=== PATIENT | male | born 1955 | race Asian ===

== ENCOUNTER 2021-04-22 07:24 | Day surgery (SDC) | payer OTHER ==
[2021-04-21 16:32] LABS: BASOPHILS # (AUTO) 0.1 X10'3 (0-0.2); BASOPHILS % (AUTO) 0.9 % (0-1); EOSINOPHILS # (AUTO) 0.1 X10'3 (0-0.9); EOSINOPHILS % (AUTO) 1.5 % (0-6); HEMATOCRIT 48.4 % (42.0-52.0); HEMOGLOBIN 16.4 g/dl (14.0-17.9); LYMPHOCYTES # (AUTO) 3.6 X10'3 (1.1-4.8); LYMPHOCYTES % (AUTO) 40.3 % (21-51); MEAN CORPUSCULAR HGB CONC 33.9 g/dL (33.0-36.5); MEAN CORPUSCULAR VOLUME 91.5 FL (78-98); MEAN PLATELET VOLUME 7.6 FL (7.4-10.4); MONOCYTES # (AUTO) 0.6 X10'3 (0-0.9); MONOCYTES % (AUTO) 6.9 % (2-12); NEUTROPHILS # (AUTO) 4.5 X10'3 (1.8-7.7); NEUTROPHILS % (AUTO) 50.4 % (42-75); PLATELET COUNT 293 X10'3 (140-440); RED BLOOD COUNT 5.29 X10'6 (4.70-6.10); RED CELL DISTRIBUTION WIDTH 13.3 % (11.5-14.5); WHITE BLOOD COUNT 8.9 X10'3 (4.5-11.0)
[2021-04-21 16:45] LABS: ALANINE AMINOTRANSFERASE 38 U/L (12-78); ALBUMIN 3.7 G/DL (3.4-5.0); ALBUMIN/GLOBULIN RATIO 0.9 (1.1-1.5); ALKALINE PHOSPHATASE 71 IU/L (46-116); ANION GAP 9 (8-16); ASPARTATE AMINO TRANSFERASE 21 U/L (10-37); BILIRUBIN,TOTAL 0.6 MG/DL (0.1-1.0); BLOOD UREA NITROGEN 18 MG/DL (7-18); BUN/CREATININE RATIO 18.2 (5.4-32.0); CALCIUM 8.7 MG/DL (8.5-10.1); CHLORIDE 107 MMOL/L (99-107); CREATININE 0.99 MG/DL (0.60-1.10); GLUCOSE 83 MG/DL (70-104); SODIUM 142 MMOL/L (135-145); TOTAL CARBON DIOXIDE 26.4 MMOL/L (24-32); TOTAL PROTEIN 7.6 G/DL (6.4-8.2); eGFR 76 ML/MIN
[2021-04-22] VITALS (15 sets, daily range): BP systolic 118–129; BP diastolic 81–97
[~2021-04-22] VITALS: Ht 160 cm; Wt 80.7 kg
[2021-04-22] MEDS ORDERED: normal saline 1000ml 1,000 ML IV SCH (07:50)
[2021-04-22] MEDS ORDERED: LORazepam 0.5 MG tablet PO ONE (07:50)
[2021-04-22] MEDS ORDERED: diphenhydrAMINE 25mg capsule PO ONE (07:50)
[2021-04-22] MEDS ORDERED: atropine 0.1mg/ml 10ml syringe IV ONE (07:50)
[2021-04-22] MEDS ORDERED: morphine 10mg/ml inj. IV ONE (07:50)
[2021-04-22] MEDS ORDERED: MIDAZolam 1mg/ml 10ml vial IV ONE (07:50)
[2021-04-22] MEDS ORDERED: amiodarone 150mg/dext, iso-os 100 ML IV ONE (07:50)
[2021-04-22] MEDS ORDERED: CHOL500049 PO (07:52)
[2021-04-22] MEDS ORDERED: FLEC100T2 PO (07:52)
[2021-04-22] MEDS ORDERED: ATOR40TA PO (07:52)
[2021-04-22] MEDS ORDERED: CARV-49 PO (07:52)
[2021-04-22] MEDS ORDERED: APIX5TAB3 PO (07:52)
== END 2021-04-22 12:35 | disposition home or self-care (01) ==
LOC: SSTAY O 07:24
PROVIDERS: ATTEND Internal Medicine Cardiovascular Disease
DX: I48.0 Paroxysmal atrial fibrillation (principal); E78.5 Hyperlipidemia, unspecified; G47.33 Obstructive sleep apnea (adult) (pediatric); F17.210 Nicotine dependence, cigarettes, uncomplicated; Z79.899 Other long term (current) drug therapy; Z79.01 Long term (current) use of anticoagulants
CPT/HCPCS: 36415; 80053; 85025; 92960; 93005; 94760; 94799; J2250; J2270

== ENCOUNTER 2023-01-18 08:00 | Day surgery (SDC) | payer BC, OTHER ==
[2023-01-17 10:42] LABS: BASOPHILS # (AUTO) 0.1 X10'3 (0-0.2); BASOPHILS % (AUTO) 0.7 % (0-1); EOSINOPHILS # (AUTO) 0.2 X10'3 (0-0.9); EOSINOPHILS % (AUTO) 1.8 % (0-6); HEMATOCRIT 48.2 % (42.0-52.0); HEMOGLOBIN 16.4 g/dl (14.0-17.9); LYMPHOCYTES # (AUTO) 3.3 X10'3 (1.1-4.8); LYMPHOCYTES % (AUTO) 35.4 % (21-51); MEAN CORPUSCULAR HEMOGLOBIN 31.7 PG (27.0-31.0); MEAN CORPUSCULAR VOLUME 93.2 FL (78-98); MEAN PLATELET VOLUME 7.7 FL (7.4-10.4); MONOCYTES # (AUTO) 0.7 X10'3 (0-0.9); MONOCYTES % (AUTO) 7.8 % (2-12); NEUTROPHILS # (AUTO) 5.1 X10'3 (1.8-7.7); NEUTROPHILS % (AUTO) 54.3 % (42-75); PLATELET COUNT 231 X10'3 (140-440); RED BLOOD COUNT 5.17 X10'6 (4.70-6.10); WHITE BLOOD COUNT 9.5 X10'3 (4.5-11.0)
[2023-01-17 10:47] LABS: ALBUMIN 3.7 G/DL (3.4-5.0); ANION GAP 8 (8-16); BLOOD UREA NITROGEN 22 MG/DL (7-18); BUN/CREATININE RATIO 22.4 (10.0-20.0); CALCIUM 8.9 MG/DL (8.5-10.1); CHLORIDE 104 MMOL/L (99-107); CREATININE 0.98 MG/DL (0.60-1.10); GLUCOSE 95 MG/DL (70-104); SODIUM 140 MMOL/L (135-145); TOTAL CARBON DIOXIDE 28.2 MMOL/L (24-32); eGFR 76 ML/MIN
[~2023-01-18] VITALS: Ht 160 cm; Wt 88.9 kg
[~2023-01-18 08:00] MED LIST: APIX5TAB3 PO; ATOR40TA PO; CARV-49 PO; CHOL500049 PO; FLEC100T2 PO
[2023-01-18] MEDS ORDERED: normal saline 1000ml 1,000 ML IV SCH (08:15)
[2023-01-18] MEDS ORDERED: MIDAZolam 1mg/ml 10ml vial IV ONE (08:15)
[2023-01-18] MEDS ORDERED: morphine 10mg/ml inj. IV ONE (08:15)
[2023-01-18] MEDS ORDERED: LORazepam 0.5 MG tablet PO ONE (08:15)
[2023-01-18] MEDS ORDERED: atropine 0.1mg/ml 10ml syringe IV ONE (08:15)
[2023-01-18 08:18] VITALS: BP 121/69
--- NOTE | 2023-01-18 10:30 | NUR ---
Procedure cancelled. Dr. Russell at bedside. Pt given new RX and instructed to take to pharmacy to fill. Patient and grandson both verbalized understanding of medication regime and new RX needing to be filled. Every medication thoroughly reviewed with grandson and patient prior to his DC.
== END 2023-01-18 10:30 | disposition home or self-care (01) ==
LOC: SSTAY O 08:00
PROVIDERS: ATTEND Internal Medicine Cardiovascular Disease
DX: I48.0 Paroxysmal atrial fibrillation (principal); Z53.8 Procedure and treatment not carried out for other reasons; G47.33 Obstructive sleep apnea (adult) (pediatric); E78.5 Hyperlipidemia, unspecified; I08.1 Rheumatic disorders of both mitral and tricuspid valves; F17.210 Nicotine dependence, cigarettes, uncomplicated; Z72.89 Other problems related to lifestyle; Z79.01 Long term (current) use of anticoagulants; Z79.899 Other long term (current) drug therapy
CPT/HCPCS: 36415; 80048; 85025; 85610; 93005; A4620; J7030

== ENCOUNTER 2024-06-26 07:55 | Day surgery (SDC) | payer MEDICARE ==
[~2024-06-26] VITALS: Ht 160 cm; Wt 92.5 kg
[2024-06-26] VITALS (11 sets, daily range): BP systolic 111–132; BP diastolic 71–93; PULSE 62–83; RESP 10–12; TEMP 98.2; O2SAT 97–100
[~2024-06-26 07:55] MED LIST changes: -FLEC100T2 PO
[2024-06-26] MEDS ORDERED: diphenhydrAMINE 25mg capsule PO ONE (08:15)
[2024-06-26] MEDS ORDERED: LORazepam 0.5 MG tablet PO ONE (08:15)
[2024-06-26] MEDS ORDERED: atropine 0.1mg/ml 10ml syringe IV ONE (08:15)
[2024-06-26] MEDS ORDERED: amiodarone 150mg/dext, iso-os 100 ML IV ONE (08:15)
[2024-06-26] MEDS ORDERED: ROSU20TA73 PO (08:54)
[2024-06-26] MEDS ORDERED: DRON400T6 PO (08:54)
[2024-06-26 09:18] LABS: BASOPHILS % (AUTO) 0.4 % (0-1); EOSINOPHILS # (AUTO) 0.1 X10'3 (0-0.9); EOSINOPHILS % (AUTO) 0.4 % (0-6); HEMATOCRIT 46.2 % (42.0-52.0); HEMOGLOBIN 15.7 g/dl (14.0-17.9); LYMPHOCYTES # (AUTO) 2.8 X10'3 (1.1-4.8); LYMPHOCYTES % (AUTO) 22.4 % (21-51); MEAN CORPUSCULAR HEMOGLOBIN 31.3 PG (27.0-31.0); MEAN CORPUSCULAR HGB CONC 33.9 g/dL (33.0-36.5); MEAN CORPUSCULAR VOLUME 92.2 FL (78-98); MEAN PLATELET VOLUME 7.8 FL (7.4-10.4); MONOCYTES # (AUTO) 0.8 X10'3 (0-0.9); MONOCYTES % (AUTO) 6.5 % (2-12); NEUTROPHILS # (AUTO) 8.8 X10'3 (1.8-7.7); NEUTROPHILS % (AUTO) 70.3 % (42-75); PLATELET COUNT 250 X10'3 (140-440); RED BLOOD COUNT 5.01 X10'6 (4.70-6.10); RED CELL DISTRIBUTION WIDTH 13.4 % (11.5-14.5); WHITE BLOOD COUNT 12.5 X10'3 (4.5-11.0)
[2024-06-26 09:24] LABS: ALBUMIN 3.7 G/DL (3.4-5.0); ANION GAP 9 (8-16); BLOOD UREA NITROGEN 14 MG/DL (7-18); BUN/CREATININE RATIO 13.7 (10.0-20.0); CALCIUM 9.2 MG/DL (8.5-10.1); CHLORIDE 105 MMOL/L (99-107); CREATININE 1.02 MG/DL (0.60-1.10); GLUCOSE 123 MG/DL (70-104); POTASSIUM 3.8 MMOL/L (3.5-5.1); SODIUM 142 MMOL/L (135-145); TOTAL CARBON DIOXIDE 28.4 MMOL/L (24-32); eCRCL 56 ML/MIN; eGFR 73 ML/MIN
[2024-06-26 09:27] LABS: PROTHROMBIN TIME 11.1 SECONDS (9.0-12.0)
--- NOTE | 2024-06-26 10:55 | NUR ---
Post cardioversion post EKG showed "acute IL." EKG faxed to Dr. Russell. Dr. Russell showed right bundle branch, not acute IL. OK to discharge patient.
[2024-06-26] MEDS: normal saline 1000ml 1,000 ML IV SCH (11:17)
[2024-06-26] MEDS: MIDAZolam 1mg/ml 10ml vial IV ONE (11:17)
[2024-06-26] MEDS: morphine 10mg/ml inj. IV ONE (11:17)
== END 2024-06-26 12:05 | disposition home or self-care (01) ==
LOC: SSTAY O 07:55
PROVIDERS: ATTEND Internal Medicine Cardiovascular Disease
DX: I48.19 Other persistent atrial fibrillation (principal); I49.1 Atrial premature depolarization; I45.2 Bifascicular block; I10 Essential (primary) hypertension; I48.0 Paroxysmal atrial fibrillation; E78.5 Hyperlipidemia, unspecified; G47.33 Obstructive sleep apnea (adult) (pediatric); F17.200 Nicotine dependence, unspecified, uncomplicated; Z79.01 Long term (current) use of anticoagulants; Z79.899 Other long term (current) drug therapy
CPT/HCPCS: 36415; 80048; 85025; 85610; 92960; 93005; J2250; J2274; J7030

== ENCOUNTER 2024-10-02 08:38 | Day surgery (SDC) | payer MEDICARE ==
[2024-10-01 12:36] LABS: BASOPHILS # (AUTO) 0.1 X10'3 (0-0.2); EOSINOPHILS # (AUTO) 0.2 X10'3 (0-0.9); EOSINOPHILS % (AUTO) 2.2 % (0-6); HEMATOCRIT 49.3 % (42.0-52.0); HEMOGLOBIN 16.8 g/dl (14.0-17.9); LYMPHOCYTES % (AUTO) 42.7 % (21-51); MEAN CORPUSCULAR HEMOGLOBIN 31.7 PG (27.0-31.0); MEAN CORPUSCULAR VOLUME 93.1 FL (78-98); MEAN PLATELET VOLUME 7.7 FL (7.4-10.4); MONOCYTES # (AUTO) 0.6 X10'3 (0-0.9); MONOCYTES % (AUTO) 8.5 % (2-12); NEUTROPHILS # (AUTO) 3.2 X10'3 (1.8-7.7); NEUTROPHILS % (AUTO) 45.6 % (42-75); PLATELET COUNT 245 X10'3 (140-440); RED BLOOD COUNT 5.29 X10'6 (4.70-6.10); RED CELL DISTRIBUTION WIDTH 13.9 % (11.5-14.5)
[2024-10-01 12:47] LABS: APTT 29 SECONDS (22-32); PROTHROMBIN TIME 10.9 SECONDS (9.0-12.0)
[2024-10-01 12:58] LABS: ALBUMIN 3.6 G/DL (3.4-5.0); ANION GAP 9 (8-16); BLOOD UREA NITROGEN 14 MG/DL (7-18); BUN/CREATININE RATIO 13.1 (10.0-20.0); CALCIUM 8.7 MG/DL (8.5-10.1); CHLORIDE 104 MMOL/L (99-107); CREATININE 1.07 MG/DL (0.60-1.10); GLUCOSE 110 MG/DL (70-104); SODIUM 141 MMOL/L (135-145); TOTAL CARBON DIOXIDE 27.7 MMOL/L (24-32); eGFR 69 ML/MIN
[2024-10-02] VITALS (9 sets, daily range): BP systolic 128–145; BP diastolic 84–100; PULSE 69–96; RESP 12–15; TEMP 98.2; O2SAT 94–99
[~2024-10-02] VITALS: Ht 160 cm; Wt 95.9 kg
[~2024-10-02 08:38] MED LIST changes: -ATOR40TA PO; +DRON400T6 PO; +ROSU20TA98 PO
[2024-10-02] MEDS ORDERED: ATOR-2 PO (09:09)
[2024-10-02] MEDS ORDERED: CHOL100046 PO (09:09)
[2024-10-02] MEDS: normal saline 1,000 ML IV SCH (09:37)
[2024-10-02] MEDS: diphenhydrAMINE 25mg capsule PO PRN (09:37)
[2024-10-02] MEDS: LORazepam 0.5 MG tablet PO PRN (09:37)
[2024-10-02] MEDS ORDERED: midazolam 1 mg/ML 2ml injection ONE (11:47)
[2024-10-02] MEDS ORDERED: verapamil 2.5 mg/ml inj IV ONE (11:47)
[2024-10-02] MEDS ORDERED: nitroGLYCERIN 500mcg/5mL D5W 5 ML IV ONE (11:47)
[2024-10-02] MEDS ORDERED: heparin 1,000unit/ml 10ml vial 10 ML ONE (11:47)
[2024-10-02] MEDS ORDERED: LIDOcaine 1% 30ml preserv. free vial ONE (11:47)
[2024-10-02] MEDS ORDERED: fentaNYL/PF 50MCG/1 ML 2ML syringe ONE (11:47)
[2024-10-02] MEDS ORDERED: iohexol 350MG/ML 100ml bottle IV ONE ×2 (11:47→13:35)
[2024-10-02] MEDS ORDERED: heparin 25,000 UNIT/250ml bag 250 ML IV ONE (13:10)
[2024-10-02] MEDS ORDERED: heparin 1,000 UNITS/NS 500ml 500 ML ONE (13:10)
[2024-10-02] MEDS ORDERED: clopidogrel 300mg tablet ONE (13:46)
[2024-10-02] MEDS ORDERED: aspirin 325mg tablet ONE (14:03)
[2024-10-02] MEDS ORDERED: aspirin 325mg tablet, delayed-release (Ecotrin) PO ONE (14:40)
[2024-10-02] MEDS ORDERED: clopidogrel 300mg tablet PO ONE (14:40)
[2024-10-02] MEDS ORDERED: ATOR-429 PO (14:57)
[2024-10-02] MEDS ORDERED: ASPI81TA52 PO (14:57)
[2024-10-02] MEDS ORDERED: CLOP75TA34 PO (14:57)
[2024-10-02] MEDS: acetylcysteine 200 MG/ml 4ml vial PO SCH (15:43)
[2024-10-03] MEDS ORDERED: clopidogrel 75mg tablet PO SCH (08:00)
[2024-10-03] MEDS ORDERED: aspirin 81mg, enteric-coated 1 TAB TABLET.DR PO SCH (08:00)
[2024-10-03 13:34] LABS: ISTAT HGB MIX 15.6 g/dl (14.0-17.9); ISTAT Hct MIX 46 %PCV (42-52); ISTAT O2 SATURATION MIX VENOUS 55 % (60-80); ISTAT SOURCE BLNK
[2024-10-03 13:35] LABS: ISTAT HGB MIX 15.3 g/dl (14.0-17.9); ISTAT Hct MIX 45 %PCV (42-52); ISTAT O2 SATURATION MIX VENOUS 88 % (60-80); ISTAT SOURCE BLNK
== END 2024-10-02 18:15 | disposition home or self-care (01) ==
LOC: SSTAY O 08:38
PROVIDERS: ATTEND Internal Medicine Cardiovascular Disease
DX: R94.39 Abnormal result of other cardiovascular function study (principal); I25.10 Atherosclerotic heart disease of native coronary artery without angina pectoris; I45.2 Bifascicular block; I48.20 Chronic atrial fibrillation, unspecified; I10 Essential (primary) hypertension; E78.5 Hyperlipidemia, unspecified; G47.33 Obstructive sleep apnea (adult) (pediatric); F17.200 Nicotine dependence, unspecified, uncomplicated; Z79.01 Long term (current) use of anticoagulants; Z79.899 Other long term (current) drug therapy; Z82.49 Family history of ischemic heart disease and other diseases of the circulatory system
CPT/HCPCS: 36415; 80048; 82803; 85014; 85025; 85347; 85610; 85730; 93005; 93460; 99152; 99153; A6258; C1874; C9600; J1644; J2003; J2250; J3010; J3490; J7030; Q0163; Q9967; 76937; A4663; A6402; C1725; C1751; C1769; C1894